=== PATIENT | female | born 1995 | race African-American/Black ===

== ENCOUNTER 2018-07-02 13:12 | Emergency (ER) | payer BC ==
[2018-07-02 14:14] VITALS: BP 116/66
[2018-07-02] MEDS ORDERED: Ondansetron ODT TAB* 4 MG PO ONE (14:27)
--- NOTE | 2018-07-02 14:28 | UC ---
Abdominal Pain Female HPI - HPI Summary HPI Summary: was drinking vodka and sangria last night usual how much she drank but " less than usual I did not black out or anything"--began throwing up at 7:30 am---and has not been able to keep down any fluids--- - History of Current Complaint Chief Complaint: UCGI Stated Complaint: NAUSEA,VOMITING,CHILLS Time Seen by Provider: 07/02/18 14:21 Hx Obtained From: Patient Hx Last Menstrual Period: 06/18/18 ?: No Onset/Duration: Sudden Onset, Lasting Hours - 7, Still Present Timing: Constant Pain Intensity: 0 Pain Scale Used: 0-10 Numeric - no pain right now Character: Cramping Aggravating Factor(s): Food Alleviating Factor(s): NPO Associated Signs and Symptoms: Positive: Nausea, Vomiting Allergies/Adverse Reactions: Allergies Allergy/AdvReac Type Severity Reaction Status Date / Time amoxicillin Allergy Anaphylatic Verified 07/02/18 14:10 Shock Home Medications: Home Medications Norgestimate-Ethinyl Estradiol [Ortho-Cyclen 28 Tablet] 1 each PO DAILY [History Confirmed 07/02/18] PMH/Surg Hx/FS Hx/Imm Hx Previously Healthy: Yes - Surgical History Surgical History: None - Family History Known Family History: Positive: None - Social History Occupation: Student Lives: Dormitory/Roommates Alcohol Use: Weekly Alcohol Amount: "drank less than usual last night I did not black out" Substance Use Type: Marijuana Substance Use Comment - Amount & Last Used: DAILY Smoking Status (MU): Never Smoked Tobacco Review of Systems Constitutional: Chills - after vomiting Skin: Negative Eyes: Negative ENT: Negative Respiratory: Negative Cardiovascular: Negative Gastrointestinal: Abdominal Pain - none at time of assessment, Vomiting, Nausea Genitourinary: Negative Motor: Negative Neurovascular: Negative Musculoskeletal: Negative Neurological: Negative Psychological: Negative Is Patient Immunocompromised?: No All Other Systems Reviewed And Are Negative: Yes Physical Exam Triage Information Reviewed: Yes Appearance: Well-Appearing, No Pain Distress, Well-Nourished Vital Signs: Initial Vital Signs Temp 98.0 F 07/02/18 14:08 Pulse 94 07/02/18 14:08 Resp 17 07/02/18 14:08 BP 116/66 07/02/18 14:08 Pulse Ox 99 07/02/18 14:08 Vital Signs Reviewed: Yes Eye Exam: Normal Eyes: Positive: Conjunctiva Clear ENT Exam: Normal ENT: Positive: Normal ENT inspection, Hearing grossly normal, TMs normal. Negative: Nasal congestion, Trismus, Muffled voice, Hoarse voice Dental Exam: Normal Neck exam: Normal Neck: Positive: Supple, Nontender, No Lymphadenopathy Respiratory Exam: Normal Respiratory: Positive: Chest non-tender, Lungs clear, Normal breath sounds, No respiratory distress, No accessory muscle use Cardiovascular Exam: Normal Cardiovascular: Positive: RRR, No Murmur, Pulses Normal, Brisk Capillary Refill Abdominal Exam: Normal Abdomen Description: Positive: Nontender, No Organomegaly, Soft. Negative: CVA Tenderness (R), CVA Tenderness (L), Distended, Guarding, Hepatomegaly, McBurney' s Point Tenderness, Splenomegaly Bowel Sounds: Positive: Present Musculoskeletal Exam: Normal Musculoskeletal: Positive: Strength Intact, ROM Intact, No Edema Neurological Exam: Normal Neurological: Positive: Alert, Muscle Tone Normal Psychological Exam: Normal Skin Exam: Normal Re-Evaluation - Re-Evaluation First Eval Change: Improved - taking po fluids well, is hungry, safe drinking reviewed with patient and diet to advance slowly today Abd Pain Female Course/Dx - Course Course Of Treatment: safe drinking information, SBIRT, advance diet slowly to day follow at [facility] as needed - Differential Dx/Diagnosis Provider Diagnoses: acute nausea/vomiting, SBIRT alcohol use Discharge - Sign-Out/Discharge Documenting (check all that apply): Patient Departure All imaging exams completed and their final reports reviewed: No Studies - Discharge Plan Condition: Stable Disposition: HOME Patient Education Materials: At-Risk Alcohol Use (ED), Acute Nausea and Vomiting (ED) Forms: *School Release Referrals: [facility] [Outside] - If Needed - Billing Disposition and Condition Condition: STABLE Disposition: Home
== END 2018-07-02 15:28 | disposition home or self-care (01) ==
LOC: UCCORT 13:12
CPT/HCPCS: 81003; 84702; 87086; 99202; A9270-GY; G0463